=== PATIENT | male | born 1930 | race Caucasian/White ===

== ENCOUNTER 2019-04-01 16:42 | Emergency (ER) | payer BC, MEDICARE ==
--- NOTE | 2019-04-01 17:45 | ER Document Report ---
HPI - HPI Time Seen by Provider: 04/01/19 17:38 Pain Level: Denies Notes: Patient is an 88-year-old male who presents for Q-tip cotton stuck in the right ear after he was using Q-tips this afternoon. He has no other concerns or complaints. No associated pain or discharge. Patient states that he is feeling well. He denies any drug allergies. No recent illness. He has no other concerns or complaints. Patient arrived from assisted living by EMS for this issue. Denies any headache, fever, neck pain, changes in vision/speech/mentation/hearing, URI, sore throat, chest pain, palpitations, syncope, cough, shortness of breath, wheeze, dyspnea, abdominal pain, na usea/vomiting/diarrhea, urinary retention, dysuria, hematuria, or rash. - ROS Systems Reviewed and Negative: Yes All other systems reviewed and negative Past Medical History - Social History Smoking Status: Unknown if Ever Smoked Family History: Reviewed & Not Pertinent Vertical Provider Document - CONSTITUTIONAL Agree With Documented VS: Yes Notes: PHYSICAL EXAMINATION: GENERAL: Well-appearing, well-nourished and in no acute distress. HEAD: Atraumatic, normocephalic. EYES: Pupils equal round and reactive to light, extraocular movements intact, sclera anicteric, conjunctiva are normal. ENT: Rt EAC has cotton inside obstructing view (removed quickly and easily with alligator forceps at bedside) and then the rt EAC was wnl. Lt EAC wnl. TM's intact b/l without erythema, fluid, or perforation. Nares patent and without discharge. oropharynx clear without exudates. No tonsilar hypertrophy or erythema. Moist mucous membranes. No sinus tenderness. NEUROLOGICAL: Cranial nerves grossly intact. Normal speech, normal gait. PSYCH: Normal mood, normal affect. SKIN: Warm, Dry, normal turgor, no rashes or lesions noted. Course - Re-evaluation Re-evalutation: 04/01/19 17:44 Patient is an afebrile, well-hydrated, 88-year-old male who presents with foreign body to his right EAC that was removed successfully without complications utilizing alligator forceps. Foreign object was cotton from what appears to be a Q-tip as was noted in history. Vitals are acceptable without significant tachycardia, tachypnea, or hypoxia. PE is otherwise unremarkable. Patient is nontoxic-appearing and is tolerating p.o. without difficulty. No CP, PALMA, or SOB. Low suspicion for any systemic emergent condition at this time. Patient to recheck with his PCM next week. Return to the ED with any other worsening/concerning symptoms. Patient is in agreement. - Vital Signs Vital signs: Temp Pulse Resp BP Pulse Ox 98.8 F 83 16 156/74 H 91 L 04/01/19 16:51 04/01/19 16:51 04/01/19 16:51 04/01/19 16:51 04/01/19 16:51 Discharge - Discharge Clinical Impression: Foreign body in right ear Qualifiers: Encounter type: initial encounter Qualified Code(s): T16.1XXA - Foreign body in right ear, initial encounter Condition: Stable Disposition: HOME, SELF-CARE Additional Instructions: Maintain adequate fluid intake Take meds as directed tylenol/ibuprofen as needed Avoid Q-tips in the ears over the counter cold medication as needed for symptoms F/u: with your PCM in 3-5 days for a recheck Consider consult with ENT Return to the ED with any fever, dizziness, tinnitus, headaches, worsening pain, chest pain, palpitations, syncope, neck pain/stiffness, shortness of breath, wheezing, drooling, trouble swallowing/breathing, abdominal pain, n/v/d, rash, or worsening/concerning symptoms otherwise. Forms: Elevated Blood Pressure Referrals: DAISY CULVER DO [ASSOCIATE] - Follow up as needed
[2019-04-01 23:25] VITALS: BP 161/63
== END 2019-04-01 21:25 | disposition home or self-care (01) ==
LOC: ER 16:42
DX: T16.1XXA Foreign body in right ear, initial encounter (principal); X58.XXXA Exposure to other specified factors, initial encounter
CPT/HCPCS: 99284

== ENCOUNTER 2019-07-18 13:39 | Emergency (ER) | payer MEDICARE, BC ==
--- NOTE | 2019-07-18 13:59 | ER Document Report ---
ED Medical Screen (RME) - General Stated Complaint: FALL,ARM INJURY Time Seen by Provider: 07/18/19 13:52 - Related Data Allergies/Adverse Reactions: No Known Allergies Allergy (Verified 04/01/19 16:46) Past Medical History Renal/ Medical History: Denies: Hx Peritoneal Dialysis
--- NOTE | 2019-07-18 14:04 | ER Document Report ---
HPI - HPI Time Seen by Provider: 07/18/19 13:52 Notes: Patient is an 88-year-old male who presents from the care home complaining of skin tear to his right posterior forearm after he slipped and hit his arm off of the nightstand. Pt states that his foot slipped out from underneath him. Pat macario denies hitting his head or losing consciousness. He is otherwise feeling well. He has been ambulating since then without difficulty. He states that his arm does not really bother him otherwise. He has been eating and drinking without difficulty. He is urinating normally. Denies drug allergies. Unknown last tetanus. Denies any headache, fever, head injury, neck pain, changes in vision/speech/mentation/hearing, URI, sore throat, chest pain, palpitations, syncope, cough, shortness of breath, wheeze, dyspnea, abdominal pain, nausea/vomiting/diarrhea, urinary retention, dysuria, hematuria, loss of control of bowel or bladder, numbness/tingling, saddle anesthesia, muscle paralysis/weakness, or rash. - ROS Systems Reviewed and Negative: Yes All other systems reviewed and negative Past Medical History - Social History Smoking Status: Unknown if Ever Smoked Family History: Reviewed & Not Pertinent Renal/ Medical History: Denies: Hx Peritoneal Dialysis Vertical Provider Document - CONSTITUTIONAL Agree With Documented VS: Yes Notes: PHYSICAL EXAMINATION: accompanied by female nurse GENERAL: Well-appearing, well-nourished and in no acute distress. A&Ox4. Answers questions appropriately. HEAD: Atraumatic, normocephalic. Non-tender. No schultz sign EYES: Pupils equal round and reactive to light, extraocular movements intact, sclera anicteric, conjunctiva are normal. No raccoon eyes/entrapment ENT: EAC clear b/l. TM's intact b/l without erythema, fluid, or perforation. Nares patent and without discharge. oropharynx clear without exudates. No tonsilar hypertrophy or erythema. Moist mucous membranes. No sinus tenderness. No hemotympanum/CSF discharge. NECK: Normal range of motion, supple without lymphadenopathy. No rigidity. No midline tenderness. Chest: No flail chest. equal rise/fall. Non-tender LUNGS: Breath sounds clear to auscultation bilaterally and equal. No wheezes rales or rhonchi. HEART: Regular rate and rhythm without murmurs, rubs, gallops. ABDOMEN: Soft, nontender, nondistended abdomen. No guarding, no rebound. Normal bowel sounds present. No CVA tenderness bilaterally. No seatbelt sign. Musculoskeletal: Ext b/l: FROM to passive/active. Strength 5+/5. No deficits noted. No bony tenderness of extremities. Back: FROM to passive/active. Strength 5+/5. No vertebral point tenderness, stepoffs, or deformities. No other bony tenderness or ecchymosis. Extremities: No cyanosis, clubbing, or edema b/l. Peripheral pulses 2+. Capillary refill less than 2 seconds. NEUROLOGICAL: NIH 0. GCS 15. Cranial nerves grossly intact. Normal speech, normal gait. Normal sensory, motor exams. PSYCH: Normal mood, normal affect. SKIN: Rt posterior distal forearm: + superficial skin tear. No significant bleeding. No laceration warranting repair. Course - Re-evaluation Re-evalutation: 07/18/19 Patient is an afebrile, well-hydrated, 88-year-old male who presents to the ED with Rt forearm skin tear. Vitals are acceptable without any significant tachycardia, tachypnea, or hypoxia. PE is otherwise unremarkable for any neurovascular compromise, obvious tendon/ligament rupture, obvious fracture/dislocation, septic joint. X-ray was unremarkable for any acute pathology. Wound dressing applied. NIH 0, GCS 15, cranial nerves grossly intact. No head injury. Patient declined any Tylenol or ice. Patient is nontoxic-appearing. Patient is able to ambulate and weight-bear w/o difficulty. No other labs or imaging warranted at this time based on H&P. Conservative measures otherwise for symptoms. Recheck with your PCM in 3-5 days. Consider consult orthopedics. Return to the ED with any worsening/concerning symptoms otherwise as reviewed in discharge. Patient is in agreement. Discharge - Discharge Clinical Impression: Skin tear of right upper extremity Condition: Stable Disposition: HOME, SELF-CARE Additional Instructions: Keep the skin clean Wet to dry dressings Wash with soap and water Tylenol/ibuprofen if needed Triple antibiotic ointment daily Take medication as directed Monitor for any worsening symptoms Recheck with your PCM in 3-5 days Return to the ED with any worsening symptoms and/or development of fever, headache, chest pain, palpitations, syncope, shortness of breath, trouble breathing, abdominal pain, n/v/d, abscess, purulent discharge, red streaks, worsening swelling, or other worsening symptoms that are concerning to you. Prescriptions: Cephalexin Monohydrate [Keflex 500 mg Capsule] 500 mg PO BID #14 capsule Forms: Elevated Blood Pressure Referrals: [facility] [Provider Group] - Follow up as needed
[2019-07-18] MEDS ORDERED: DIPH/PERTUSS(ACELL)/TETANUS VAC/PF 0.5 ML SYR (>=10YO) IM ONE (14:05)
--- NOTE | 2019-07-18 14:32 | RADIOLOGY REPORT (SQ) ---
EXAM DESCRIPTION: FOREARM RIGHT COMPLETED DATE/TIME: 07/18/2019 2:24 pm REASON FOR STUDY: fall/injury COMPARISON: None. NUMBER OF VIEWS: Two views. TECHNIQUE: Two radiographic images acquired of the right forearm, including elbow and wrist in at le ast one projection. LIMITATIONS: None. FINDINGS: MINERALIZATION: Normal. BONES: No acute fracture dislocation. Degenerative changes about the wrist greatest at the 1st and 2 nd carpometacarpal joint with osteophytosis, joint space loss and subchondral sclerosis. SOFT TISSUES: No radiopaque foreign body. Soft tissue swelling and abrasion along the dorsal aspect of the distal forearm. OTHER: No other significant finding. IMPRESSION: No acute bony abnormality. No radiopaque foreign body. Soft tissue swelling/ abrasion along the dorsal distal forearm. TECHNICAL DOCUMENTATION: JOB ID: [id number] [employer]- All Rights Reserved Reading location - IP/workstation name: [email or web address]
[2019-07-18 15:37] VITALS: BP 162/69
== END 2019-07-18 15:39 | disposition home or self-care (01) ==
LOC: ER 13:39
DX: S51.811A Laceration without foreign body of right forearm, initial encounter (principal); W01.190A Fall on same level from slipping, tripping and stumbling with subsequent striking against furniture, initial encounter
CPT/HCPCS: 90471; 90715; 99283